=== PATIENT | female | born 1960 | race African-American/Black ===

== ENCOUNTER 2017-04-28 10:42 | Emergency (ER) | payer BC ==
[2017-04-28 10:51] VITALS: BP 155/90; PULSE 82; TEMP 98.3; BMI 35.9
[2017-04-28] MEDS ORDERED: KETOROLAC TROMETHAMINE 60 MG/2 ML VIAL IM ONE (11:39)
--- NOTE | 2017-04-28 11:39 | PDOC ---
History of Present Illness - General Chief Complaint: Back Pain Stated Complaint: BACK PAIN Time Seen by Provider: 04/28/17 11:21 History Source: Patient Exam Limitations: No Limitations - History of Present Illness Initial Comments: 04/28/17 11:25 CHIEF COMPLAINT: Right lateral lower back pain HISTORY OF PRESENT ILLNESS: Patient is a 56 y/o female history of hypertension presents the ER with right lateral lower back pain. Patient reports history of the same but worse with seen in 12/11 MRI performed showed degenerative disc, never followed up. 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 Did not take anything for the pain. Pain is radiating to right lower quadrant and down right leg. No neurosensory deficits, no bowel or bladder difficulty incontinence or urinary retention, no saddle anesthesia, no footdrop. No history of IVDU or history of cancer. ] REVIEW OF SYSTEMS: GENERAL: Afebrile, denies any weakness RESPIRATORY: No cough, wheezing, or hemoptysis. CARDIAC: No chest pain or shortness of breath MUSCULOSKELETAL: Pain to generalized lower back. Pain on palpation right SI . SKIN : No erythema, no bruising, no deformity. GI/: Denies any abdominal pain, no urinary difficulty, incontinence or urinary retention. RECTAL: Denies any difficulty this A.m. NEUROLOGICAL: Denies any numbness or tingling. No neurosensory deficits. PHYSICAL EXAM: GENERAL: The patient is awake, alert, and fully oriented, in no acute distress. RESPIRATORY: Lungs clear bilaterally, no rhonchi wheezes or crackles CARDIAC: S1-S2 audible, no murmur rub or gallop MUSCULOSKELETAL: Pain to generalized lower back, nonradiating, no tingling or sensory deficit. Less than 2 second cap refill, +4 popliteal and pedal pulses. GI/: Abdomen soft, nontender, nondistended. No rebound tenderness. No masses palpable. MUSCULOSKELETAL: No spinal point tenderness. Normal reflexive and no deficits to sensation or strength. RECTAL: [Deferred patient with no neurological findings] [Normal Rectal Tone]. [ Guaiac negative] SKIN: Warm, Dry, normal turgor, no erythema, no edema no bruising. 04/28/17 11:39 Past History - Past Medical History Allergies/Adverse Reactions: Allergies Allergy/AdvReac Type Severity Reaction Status Date / Time No Known Allergies Allergy Verified 04/28/17 11:41 Home Medications: Ambulatory Orders Cyclobenzaprine HCl [Flexeril 10 mg] 10 mg PO BID PRN #20 tablet 04/28/17 Losartan Potassium 50 mg PO DAILY 04/28/17 Methylprednisolone [Medrol Dose Billy] 4 mg PO ASDIR #21 tablet 04/28/17 COPD: No HTN: Yes Other medical history: back pain - Surgical History Abdominal Surgery: Yes (tubal ligation) - Suicide/Smoking/Psychosocial Hx Smoking History: Never smoked Have you smoked in the past 12 months: No Information on smoking cessation initiated: No Hx Alcohol Use: No Drug/Substance Use Hx: No Substance Use Type: None *Physical Exam - Vital Signs Last Vital Signs Temp Pulse Resp BP Pulse Ox 98.3 F 82 18 155/90 100 04/28/17 10:44 04/28/17 10:44 04/28/17 10:44 04/28/17 10:44 04/28/17 10:44 Medical Decision Making - Medical Decision Making 04/28/17 11:50 A/P: Patient with chronic lower back pain worse in the last 5 days pain to right hip. Patient reports pain is similar in the past MRI demonstrated degenerative disc. Good range of motion to the hip with pain on palpation to posterior side. Will perform x-ray of right hip Toradol 60 mg IM 04/28/17 13:23 X-rays negative for acute pathology, patient reports feeling better after Toradol DC patient home on Medrol Dosepak and Flexeril, follow-up with *DC/Admit/Observation/Transfer Diagnosis at time of Disposition: Back pain Qualifiers: Back pain location: low back pain Chronicity: acute Back pain laterality: right Sciatica presence: with sciatica Sciatica laterality: sciatica of right side Qualified Code(s): M54.41 - Lumbago with sciatica, right side - Discharge Dispostion Disposition: HOME Condition at time of disposition: Stable Admit: No - Prescriptions Prescriptions: Cyclobenzaprine HCl [Flexeril 10 mg] 10 mg PO BID PRN #20 tablet PRN Reason: Pain Methylprednisolone [Medrol Dose Billy] 4 mg PO ASDIR #21 tablet - Referrals Referrals: Napoleon Milton MD [Primary Care Provider] - - Patient Instructions Printed Discharge Instructions: Back Pain (Alternative Therapy) Additional Instructions: Please follow-up with her primary care doctor as soon as possible Please take medication as prescribed until completed, if any increased pain numbness or tingling or any other concerns return to ER - Post Discharge Activity Forms/Work/School Notes: Back to Work
== END 2017-04-28 13:24 | disposition home or self-care (01) ==
LOC: JER 10:42 → JERFT 10:42
PROC: 3E0233Z Introduction of Anti-inflammatory into Muscle, Percutaneous Approach (ICD-10-PCS; principal; 2017-04-28)
DX: M54.41 Lumbago with sciatica, right side (principal); I10 Essential (primary) hypertension
CPT/HCPCS: 73523-TC-FY; 99281-25

== ENCOUNTER 2017-04-29 11:51 | Emergency (ER) | payer BC ==
[2017-04-29 12:12] VITALS: TEMP 98.1; BMI 43.2
--- NOTE | 2017-04-29 12:24 | PDOC ---
History of Present Illness - General Chief Complaint: Nausea/Vomiting Stated Complaint: REVISIT, NAUSEA Time Seen by Provider: 04/29/17 12:24 History Source: Patient - History of Present Illness Initial Comments: 04/29/17 12:46 56 y.o. female with a PMH of ED evaluation yesterday for back pain presents to our ED c/o 2 day h/o NBNB emesis as well as nausea. Patient denies any associated diarrhea/constipation, fevers/chills. Patient notes the nausea started 20 minutes after recieving a shot yesterday in the ED (as per EMR Toradol) and she first vomited when she got home-shortly after taking her Predisolone which was prescribed to her. Patient states she had 5 episodes of NBNB emesis yesterday. Patient took the Predisolone this morning but not the Flexiril that was prescribed to her and had 3 episodes of emesis today prompting her visit to the Emergency [facility] Patient further notes her back pain was not relieved by the Toradol and she continues to have difficulty/ pain with ambulating. NKDA Surgical: denies Social: denies cigarettes, denies alcohol, denies recreational drugs PMD: Dr. Gilmar Milton Past History - Past Medical History Allergies/Adverse Reactions: Allergies Allergy/AdvReac Type Severity Reaction Status Date / Time No Known Allergies Allergy Verified 04/29/17 12:07 Home Medications: Ambulatory Orders Cyclobenzaprine HCl [Flexeril 10 mg] 10 mg PO BID PRN #20 tablet 04/28/17 Losartan Potassium 50 mg PO DAILY 04/28/17 Methylprednisolone [Medrol Dose Billy] 4 mg PO ASDIR #21 tablet 04/28/17 Ondansetron HCl [Zofran] 4 mg PO BID #10 tablet 04/29/17 COPD: No HTN: Yes - Surgical History Abdominal Surgery: Yes (tubal ligation) - Suicide/Smoking/Psychosocial Hx Smoking History: Never smoked Have you smoked in the past 12 months: No Hx Alcohol Use: No Drug/Substance Use Hx: No Substance Use Type: None Review of Systems - Review of Systems Constitutional: No: Chills, Fever HEENTM: No: Recent change in vision Respiratory: No: Cough, Shortness of Breath Cardiac (ROS): No: Chest Pain, Lightheadedness, Palpitations, Syncope ABD/GI: Yes: Nausea, Poor Appetite, Vomiting (NBNB emesis). No: Constipated, Diarrhea, Rectal Bleeding, Abdominal cramping, Tarry Stools : No: Burning, Dysuria Musculoskeletal: Yes: Back Pain *Physical Exam - Vital Signs Last Vital Signs Temp Pulse Resp BP Pulse Ox 98.1 F 75 18 169/87 100 04/29/17 12:07 04/29/17 12:07 04/29/17 12:07 04/29/17 12:07 04/29/17 12:07 - Physical Exam Comments: 04/29/17 13:02 GENERAL: The patient is awake, alert, and fully oriented HEAD: Normocephalic, atraumatic. EYES: extraocular movements intact, sclera anicteric, conjunctiva clear. ENT: normal voice, moist mucous membranes NECK: normal range of motion, supple LUNGS: breath sounds equal, clear to auscultation bilaterally, no wheezes, no rhonchi, no rales HEART: RRR normal S1 and S2 without murmur, rub or gallop. ABDOMEN: (+) LUQ/LLQ tenderness, (+) suprapubic tenderness, (+) L sided CVA tenderness No guarding, no rebound. EXTREMITIES: Normal range of motion, no edema, No clubbing or cyanosis. No cords , erythema, or tenderness. NEUROLOGICAL: No facial assymetry, Normal speech, antalgic gait, (+) LLE straight leg raise test, (+) neurovasculary intact PSYCH: Normal mood, normal affect. SKIN: Warm, Dry, normal turgor 04/29/17 17:06 ED Treatment Course - LABORATORY CBC & Chemistry Diagram: 04/29/17 13:06 Medical Decision Making - Medical Decision Making 04/29/17 12:56 56 y.o. female with nausea/vomiting possibly related to Predisone. On PE RLE straight leg test reproduces pain at 70 degrees-- suggestive of possible L4-S1 disc herniation. No bowel/bladder incontinence reported. Will xray L/S spine + supportive care and reassess. 04/29/17 13:13 L/S spine negative for herniation, shows some spondylthesis changes however no herniation. Patient denies any emesis while in ED, nausea resolved with Zofran. Will discharge patient home with outpatient Zofran, instruction to stop Predisolone medication and follow-up with PMD as well as referral to pain management. Patient counseled extensively on POC and discharged with return precautions and outpatient Zofran prescirption. I discussed the physical exam findings, ancillary test results and final diagnoses with the patient. I answered all of the patient's questions. The patient was satisfied with the care received and felt comfortable with the discharge plan and treatment plan. The patient will return to the Emergency Department with any new, persistent or worsening symptoms. *DC/Admit/Observation/Transfer Diagnosis at time of Disposition: Nausea & vomiting - Discharge Dispostion Disposition: HOME Condition at time of disposition: Good Admit: No - Prescriptions Prescriptions: Ondansetron HCl [Zofran] 4 mg PO BID #10 tablet - Referrals Referrals: Vega Worley MD [Staff Physician] - - Patient Instructions Printed Discharge Instructions: DI for Nausea -- Adult, DI for Vomiting -- Adult Additional Instructions: You were evaluated today for vomiting and your back pain. Your labs showed no concerning findings and there were no findings. Please follow-up with both pain management (referral information provided) and your primary care doctor. Return to the Emergency Department with any new/worsening/concerning symptoms. - Post Discharge Activity Forms/Work/School Notes: Back to Work
--- NOTE | 2017-04-29 12:33 | PDOC ---
Attending Attestation - Resident Resident Name: Beti Modi - ED Attending Attestation I have performed the following: I have examined & evaluated the patient, The case was reviewed & discussed with the resident, I agree w/resident's findings & plan, Exceptions are as noted - HPI HPI: 04/29/17 16:19 Ms Garcia is a 56 yo F h/o hypertension, chronic back pain who presents the ER with right lateral lower back pain. she has had an MRI in the past, reportedly demonstrated degenerative changes, she did not follow up Pt was seen in the ER yesterday, s/p toradol and medrol dose pack She has had no trauma to the back No fevers or chills No bowel or bladder incontinence - Physicial Exam PE: PHYSICAL EXAM: GENERAL: The patient is awake, alert, and fully oriented, in no acute distress, flattened affect. RESPIRATORY: Lungs clear bilaterally, no rhonchi wheezes or crackles CARDIAC: S1-S2 audible, no murmur rub or gallop MUSCULOSKELETAL: Pain to generalized lower back, nonradiating, no tingling or sensory deficit. Less than 2 second cap refill, +4 popliteal and pedal pulses. GI/: Abdomen soft, nontender, nondistended. No rebound tenderness. No masses palpable. MUSCULOSKELETAL: No spinal point tenderness. Normal reflexive and no deficits to sensation or strength. SKIN: Warm, Dry, normal turgor, no erythema, no edema no bruising. - Medical Decision Making 04/29/17 16:23 56 yo F presenting to the ER again due to back pain Pt had imaging in November which demonstrated degenerative changes No high risk features - Trauma, cancer, IVDU, Was seen here yesterday Meds have made her nauseous and have not improved her pain 04/29/17 16:27 Will discharge to home Follow up with Pain management Return to the ER for any other concerns or complaints Clinical Impression: back pain, initial presentation
[2017-04-29] MEDS ORDERED: SODIUM CHLORIDE 0.9% 500 ML INFUS.BAG IV ONE (12:49)
[2017-04-29] MEDS ORDERED: ONDANSETRON 4 MG/2 ML VIAL IVPUSH ONE (12:49)
[2017-04-29] MEDS ORDERED: ONDANSETRON 4 MG/2 ML VIAL ONE (13:26)
[2017-04-29 13:57] LABS: ALBUMIN 3.3 g/dl (3.4-5.0); ANION GAP 10 (8-16); BILIRUBIN,TOTAL 0.4 mg/dL (0.2-1.0); BLOOD UREA NITROGEN 10 mg/dL (7-18); CHLORIDE 102 mmol/L (98-107); CO2 31 mmol/L (21-32); CREATININE 0.8 mg/dL (0.55-1.02); GLUCOSE,RANDOM 109 mg/dL (74-106); POTASSIUM 3.7 mmol/L (3.5-5.1); SGOT/AST 16 U/L (15-37); SGPT/ALT 21 U/L (12-78); SODIUM 143 mmol/L (136-145); TOT PROT 7.8 g/dl (6.4-8.2)
[2017-04-29 13:58] LABS: ALK PHOS 110 U/L (45-117)
[2017-04-29 16:32] VITALS: BP 162/96; PULSE 74
== END 2017-04-29 16:31 | disposition home or self-care (01) ==
LOC: JER 11:51
PROC: 3E033GC Introduction of Other Therapeutic Substance into Peripheral Vein, Percutaneous Approach (ICD-10-PCS; principal; 2017-04-29)
PROC: 3E0337Z Introduction of Electrolytic and Water Balance Substance into Peripheral Vein, Percutaneous Approach (ICD-10-PCS; 2017-04-29)
DX: R11.2 Nausea with vomiting, unspecified (principal); I10 Essential (primary) hypertension
CPT/HCPCS: 36415; 72100-TC-FY; 80053; 99282-25